=== PATIENT | female | born 1970 | race Caucasian/White ===

== ENCOUNTER 2018-08-21 21:03 | Emergency (ER) | payer MEDICAID ==
[~2018-08-21] VITALS: Ht 167.6 cm; Wt 58.1 kg
--- NOTE | 2018-08-21 21:16 | NUR ---
Pt ambulated to ER with c/o fever, N/V, cough, & bodyache x 1 day. 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 AAOx4. Denies chest pain/sob. Denies diarrhea/constipation. Respirations even + unlabored.
--- NOTE | 2018-08-21 21:31 | NUR ---
Rapid influenza swab specimen sent to lab. Pending results.
--- NOTE | 2018-08-21 21:59 | NUR ---
Patient discharged to home in stable conditon. Written and verbal after care instructions given. Patient verbalizes understanding of instructions. Pt left ER w stable gait with family member. No acute distress noted. All belongings w pt. VSS.
[2018-08-21 22:00] VITALS: BP 112/79
== END 2018-08-21 22:01 | disposition home or self-care (01) ==
LOC: ER 21:08
DX: R50.9 Fever, unspecified (principal); R51 Headache; M54.2 Cervicalgia
CPT/HCPCS: 87400; A4663